=== PATIENT | female | born 1970 | race Caucasian/White ===

== ENCOUNTER → 2020-05-31 07:46 | Outpatient (CLI) | payer OTHER, SELFPAY ==
--- NOTE | ~2020-05-31 | MMUS_ITS ---
EXAMINATION: MM diagnostic tatyana BI w marcio, US breast RT complete HISTORY: Right axillary tail lump TECHNIQUE: Bilateral full field and right spot ML, MLO and craniocaudal 3-D tomosynthesis images were performed and synthetic 2-D images were generated. CAD analysis was submitted and interpreted. High resolution complete right breast and right axillary ultrasound was performed. COMPARISON: 07/26/2010, 07/17/2009, bilateral digital screening mammogram BREAST PARENCHYMAL COMPOSITION: There are scattered areas of fibroglandular density. FINDINGS: MAMMOGRAPHIC FINDINGS: Circumscribed right axillary stable benign-appearing lymph nodes are noted, also present on 07/26/2010 and 07/17/2009 and 02/27/2006. No suspicious mass, architectural distortion, malignant calcification, skin thickening or retraction or significant new or developing density since prior examinations dating back to 02/27/2006. ULTRASOUND: Unremarkable circumscribed benign-appearing lymph nodes are noted in the right axillary area, includi ng an approximately 8 x 1.6 cm lymph node at the area of clinical complaint of palpable abnormality. No suspicious right breast mass or shadowing is evident. IMPRESSION: 1. No mammographic evidence of malignancy 2. Routine annual mammographic screening is recommended. 3. If there is any clinically suspicious palpable finding, consider biopsy. BI-RADS Category 2: Benign finding(s). Reviewed, dictated and finalized at location A. ENT CLERICAL ASSISTANT IMPRESSION: 1. No mammographic evidence of malignancy 2. Routine annual mammographic screening is recommended. 3. If there is any clinically suspicious palpable finding, consider biopsy. BI-RADS Category 2: Benign finding(s).
== END ==
PROVIDERS: PCP Internal Medicine; Visit Provider Nurse Practitioner Obstetrics & Gynecology
DX: N63.31 Unspecified lump in axillary tail of the right breast (principal)
CPT/HCPCS: 76641; 77062; 77066; G0279

== ENCOUNTER 2022-07-01 11:18 | Emergency (ER) | payer OTHER, SELFPAY ==
[2022-07-01 12:01] VITALS: BP 149/100; PULSE 97; RESP 16; TEMP 36.7; O2SAT 98
--- NOTE | 2022-07-01 12:24 | ED.ABDPAIN ---
HPI - Abdominal Pain General Chief Complaint: Abdominal Pain Stated Complaint: pain on lt side Time Seen by Provider: 07/01/22 12:24 Source: patient and RN notes reviewed Mode of arrival: ambulatory Limitations: no limitations History of Present Illness HPI narrative: 51-year-old female presented for complaint of abdominal pain, onset yesterday morning. She endorses the night before she felt extremely nauseous. She reports the pain is to the left of her belly button and radiates to the right lower abdomen. She denies any pain at rest. Endorses pain is 7/10 with any movement. She currently denies nausea vomiting, diarrhea, constipation, urinary complaints, fevers or chills. She has history of cholecystectomy and hysterectomy. Related Data Home Medications Medication Instructions Recorded Confirmed atorvastatin 10 mg tablet 10 mg PO DAILY 07/01/22 07/01/22 bupropion HCl 150 mg 24 hr tablet, 150 mg PO DAILY 07/01/22 07/01/22 extended release Allergies Allergy/AdvReac Type Severity Reaction Status Date / Time No Known Allergies Allergy Unverified 07/01/22 12:04 Review of Systems Review of Systems: CONSTITUTIONAL: Denies body aches, fever, chills ENT: Denies rhinorrhea, congestion CARDIOVASCULAR: Denies chest pain, palpitations, or edema. RESPIRATORY: Denies cough or dyspnea. GASTROINTESTINAL: Endorses abdominal pain, Denies nausea, vomiting, diarrhea, hematochezia/melena GENITOURINARY: Denies dysuria, hematuria, or CVA tenderness. SKIN: Denies rash, itching, or wounds. MUSCULOSKELETAL: Denies back pain, joint pain, or myalgia. NEUROLOGIC: Denies headache, numbness, tingling, or weakness. All systems reviewed & are unremarkable except as noted in HPI and below [facility] Comments At time of signature, I have reviewed and agree with nursing past medical, surgical, social and family history unless otherwise noted. Please see nursing chart for further information. There is no relevant family history pertinent to the presenting complaint Exam Narrative: GENERAL: Well-appearing, and in no acute distress. appears in pain with movement EYES: EOMI. Conjunctivae normal. ENT: Mucous membranes pink and moist. CHEST: No respiratory distress. Clear to auscultation. HEART: Regular rate and rhythm. No murmur appreciated. Normal peripheral pulses. ABDOMEN: abd soft, nondistended, normal active bowel sounds. Tender abdomen left of umbilicus and RLQ with palpation; guarding noted, without rebound tenderness, asymmetry EXTREMITIES: Normal range of motion. No edema. SKIN: Warm, dry, no rash. Capillary refill normal. Normal skin turgor. NEURO: No focal deficits. Alert and oriented x3. PSYCH: Normal affect. Course Course Emergency Course: Patient is aware of diagnosis, understands and agrees to treatment plan. Anticipatory guidance given. Patient agrees to follow-up as directed and is aware of reasons to seek care at the emergency department. Portions of this record may have been created with voice recognition software Level of Care: Express Care Visit Vital Signs Vital signs: Vital Signs Temperature 98.1 F 07/01/22 12:01 Pulse Rate 97 07/01/22 12:01 Respiratory Rate 16 07/01/22 12:01 Blood Pressure 149/100 H 07/01/22 12:01 Pulse Oximetry 98 07/01/22 12:01 Oxygen Delivery Room Air 07/01/22 12:01 Temperature 98.1 F 07/01/22 12:01 Pulse Rate 97 07/01/22 12:01 Respiratory Rate 16 07/01/22 12:01 Blood Pressure 149/100 H 07/01/22 12:01 Pulse Oximetry 98 07/01/22 12:01 Oxygen Delivery Room Air 07/01/22 12:01 Transfer Transfered to: [place] Transportation: Other (private vehicle) Transfer rationale: Pt is agreeable to transfer. Requests transfer to [facility] via private vehicle. Risks of transportation reviewed with pt including injury, worsening of condition and . v/u. will be driving pt; Report called to hospital, spoke with Dr Chavis, accepting p
== END 2022-07-01 12:37 | disposition short-term general hospital (02) ==
PROVIDERS: Emergency Provider Nurse Practitioner Family; PCP Internal Medicine
DX: R10.31 Right lower quadrant pain (principal); E78.00 Pure hypercholesterolemia, unspecified; F41.9 Anxiety disorder, unspecified
CPT/HCPCS: 99202; G0463

== ENCOUNTER 2022-07-01 12:56 | Emergency (ER) | payer OTHER, SELFPAY ==
--- NOTE | ~2022-07-01 | CT_ITS ---
EXAMINATION: CT abdomen pelvis w con DATE: 07/01/2022 17:43 INDICATION: periumbilical/RLQ pain, nausea TECHNIQUE: Computed tomography (CT) of the abdomen and pelvis was performed with 100 mL Omnipaque-350 intravenous contrast. Automated exposure control and iterative reconstruction technique were employe d. The dose-length product was 1051.32 mGy-cm. COMPARISON: 01/11/2011. FINDINGS: Lower thorax: Small hiatal hernia Liver: Normal. Biliary/Gallbladder: Gallbladder is absent. No bile duct dilation. Pancreas: No mass or duct dilation. Spleen: Normal. Adrenals:No mass. Kidneys: No mass, stone, or hydronephrosis. GI tract: No small or large bowel dilation. Normal appendix. Mild distal sigmoid and rectal wall thic kening. Pronounced diverticulosis without diverticulitis. Mesentery/Peritoneum: No ascites, mass, or free air. Retroperitoneum: No mass. Pelvis: Pelvic organs are within normal limits. Soft Tissues: Small uncomplicated fat-containing umbilical hernia Bones: No acute osseous finding. IMPRESSION: Mild distal sigmoid and rectal wall thickening, which may reflect a component of colitis/proctitis in the appropriate clinical context. Otherwise, no acute abdominopelvic process detected Reviewed, dictated and finalized at location K. TABLE HARVEST MACHINE OPERATOR IMPRESSION: Mild distal sigmoid and rectal wall thickening, which may reflect a component o f colitis/proctitis in the appropriate clinical context. Otherwise, no acute ab dominopelvic process detected
[2022-07-01 13:02] VITALS: BP 150/99; PULSE 84; RESP 16; TEMP 36.8; O2SAT 99
[2022-07-01 13:56] LABS: Add Urine Microscopic? YES; Appearance Urine Clear (Clear); Basophils Percent Auto 0.3 % (0.2-1.2); Bilirubin Urine Negative (Negative); Blood Urine Negative (Negative); Color Urine Yellow (Yellow); Eosinophils Absolute Auto 0.1 K/mm3 (0-0.3); Eosinophils Percent Auto 1.4 % (0-4.4); Glucose Urine UA Negative (Negative); Hematocrit 42.1 % (37.0-47.0); Hemoglobin 14.4 g/dL (12.0-15.0); Immature Granulocyte Absolute 0.03 K/mm3 (0.00-0.031); Immature Granulocyte Percent A 0.3 % (0-0.5); Ketones Urine Negative (Negative); Leukocyte Esterase Ur Trace LEU/UL (Negative); Lymphocytes Absolute Auto 3.28 K/mm3 (0.9-3.2); Lymphocytes Percent Auto 38.1 % (18.3-44.2); Mean Corpuscular HGB Conc 34.2 g/dl (32-36); Mean Corpuscular Hemoglobin 31.3 pg (26-34); Mean Corpuscular Volume 91.5 fl (80-100); Mean Platelet Volume 8.8 fl (7.4-10.4); Monocytes Absolute Auto 0.6 K/mm3 (0.1-0.6); Monocytes Percent Auto 6.5 % (2.6-8.5); Neutrophils Absolute Auto 4.6 K/mm3 (1.3-6.7); Neutrophils Percent Auto 53.4 % (45.5-73.1); Nitrate Urine Negative (Negative); Platelet Count Result 277 k/mm3 (150-375); Protein Urine Negative (Negative); Red Cell Distribution Width 13.4 % (11.5-14.5); Urobilinogen Urine 0.2 mg/dL (<2.0); White Blood Count 8.6 K/mm3 (4.5-10.0); pH Urine 6.5 (5.0-9.0)
[2022-07-01 14:03] LABS: Bacteria Urine Trace /hpf; RBC Urine 0-2 /hpf (0-2); Squamous Epithelial Cell Urine Many /hpf (Few); WBC Urine 0-3 /hpf
[2022-07-01 14:05] LABS: Alanine Aminotransferase 21 U/L (6-35); Albumin Level 4.7 g/dL (3.5-5.1); Alkaline Phosphatase 71 U/L (38-126); Anion Gap 7 mmol/L (8-16); Aspartate Amino Transferase 25 U/L (14-36); Bilirubin,Total 0.4 mg/dL (0.2-1.3); Blood Urea Nitrogen 10 mg/dL (7-17); Carbon Dioxide 29 mmol/L (22-30); Chloride 103 mmol/L (98-107); Estimated CRCL calculation 67 ml/min; Estimated Glomerular Filt Rate 58; Glucose 90 mg/dL (65-110); Lipase 56 U/L (23-300); Potassium 4.4 mmol/L (3.4-5.0); Sodium 139 mmol/L (137-145)
[2022-07-01 16:55] VITALS: BP 130/86; PULSE 83; RESP 18; O2SAT 97
[2022-07-01] MEDS: SODIUM CHLORIDE 0.9% IV 1,000 ML 999 ML IV CONT (17:09)
--- NOTE | 2022-07-01 17:21 | ED.ABDPAIN ---
HPI - Abdominal Pain General Chief Complaint: Abdominal Pain Stated Complaint: abd pain Time Seen by Provider: 07/01/22 16:56 Source: patient Mode of arrival: ambulatory Limitations: no limitations History of Present Illness HPI narrative: Patient is a 51-year-old female who presents the ED with report of periumbilical abdominal pain. Patient reports she developed nausea and a general unwell feeling 2 nights ago. She developed pain in her periumbilical region yesterday, which has persisted since then. Worse with any type of movement. No pain with resting. She has been taking ibuprofen with minimal relief. She went to an urgent care today where she was referred to the ED for further evaluation and to rule out appendicitis. Patient denies any further nausea, vomiting, diarrhea, constipation, fever, urinary symptoms, history of similar pain. Related Data Allergies Allergy/AdvReac Type Severity Reaction Status Date / Time No Known Allergies Allergy Verified 07/01/22 16:56 Review of Systems Review of Systems: CONSTITUTIONAL: Denies fever, chills, or sweats. CARDIOVASCULAR: Denies chest pain. RESPIRATORY: Denies dyspnea. GASTROINTESTINAL: See HPI. GENITOURINARY: Denies dysuria or hematuria. SKIN: Denies rash or itching. MUSCULOSKELETAL: Denies back pain, joint pain, or myalgia. All systems reviewed & are unremarkable except as noted in HPI and below PMFSH Past Medical History Medical History (Updated 07/01/22 @ 19:57 by Courtney Mcqueen PA-C) Anxiety Depression Hyperlipidemia Surgical History Surgical History (Updated 07/01/22 @ 17:23 by Courtney Mcqueen PA-C) History of cholecystectomy History of hysterectomy Hx of partial thyroidectomy Social History Social History (Updated 07/01/22 @ 17:23 by Courtney Mcqueen PA-C) Smoking status: Never smoker Exam Narrative: GENERAL: Well appearing, obese, non-toxic, in no acute distress. HEAD: Normocephalic, atraumatic. NECK: Supple. No adenopathy, no masses. RESPIRATORY: Airway patent, respirations nonlabored. Clear to auscultation bilaterally, no rales, rhonchi, wheezing. CARDIOVASCULAR: Regular rate and rhythm without murmurs, rubs, or gallops. Peripheral pulses 2+ and equal bilaterally. ABDOMINAL: Soft, mild tenderness to palpation in right periumbilical region, extending into right mid abdomen, nondistended, no hepatosplenomegaly. Normoactive BS. MUSCULOSKELETAL: Moves all extremities. Strength/ROM intact without gross deformities. SKIN: Warm, dry, normal color. No rashes. NEURO: A&O X3. Speech clear. Cranial nerves II-XII grossly intact. Steady gait. No ataxic movements. PSYCHIATRIC: Appropriate mood and affect. Normal interaction. Course Vital Signs Vital signs: Vital Signs Temperature 98.3 F 07/01/22 13:02 Pulse Rate 84 07/01/22 13:02 Respiratory Rate 16 07/01/22 13:02 Blood Pressure 150/99 H 07/01/22 13:02 Pulse Oximetry 99 07/01/22 13:02 Oxygen Delivery Room Air 07/01/22 13:02 Temperature 98.3 F 07/01/22 13:02 Pulse Rate 82 07/01/22 18:51 Respiratory Rate 18 07/01/22 18:51 Blood Pressure 131/95 H 07/01/22 18:51 Pulse Oximetry 98 07/01/22 18:51 Oxygen Delivery Room Air 07/01/22 13:02 MDM - Abdominal Pain MDM Narrative Medical decision making narrative: Patient presented to ED with 2-day history of periumbilical abdominal pain. Vitals stable upon arrival. Patient with tenderness extending into R mid abdomen on exam. Labs unremarkable. UA without signs of infection. CT scan of abdomen/pelvis obtained showing possible signs of colitis/proctitis, otherwise no acute intra-abdominal findings. Low suspicion for colitis as patient has not had any bowel changes, no leukocytosis, no fevers. CT noted normal appendix, normal pelvic structures. Does show small umbilical hernia, though not palpable on exam. Less likely that this is cause of pain. No signs of bowel involvement of hernia. Discussed lab
[2022-07-01] MEDS: KETOROLAC 30 MG/ML VIAL (*BKC) IV PUSH (18:45)
[2022-07-01 18:51] VITALS: BP 131/95; PULSE 82; RESP 18; O2SAT 98
== END 2022-07-01 20:48 | disposition home or self-care (01) ==
PROVIDERS: Emergency Medicine; Emergency Provider Physician Assistant; PCP Internal Medicine
DX: R10.33 Periumbilical pain (principal)
CPT/HCPCS: 36415; 74177; 80053; 81001; 81025; 83690; 85025; 96365; 96366; 96375; 99284; J0131; J1885; J7030; Q9967

== ENCOUNTER 2023-05-28 12:24 | Emergency (ER) | payer OTHER, SELFPAY ==
[2023-05-28] VITALS (15 sets, daily range): BP systolic 117–153; BP diastolic 82–99; PULSE 84–98; RESP 12–18; TEMP 36.6; O2SAT 95–100
--- NOTE | ~2023-05-28 | XR_ITS ---
EXAMINATION: XR chest 2V DATE: 05/28/2023 14:25 INDICATION: Midsternal chest pressure. TECHNIQUE: Frontal and lateral views of the chest were obtained. COMPARISON: Chest 2 views 02/17/2017, CT abdomen and pelvis 07/01/2022 FINDINGS: There is no pneumonia, pleural effusion, or pneumothorax. The heart size is normal. Surgica l clips in the right upper quadrant are likely from cholecystectomy. IMPRESSION: 1. No acute cardiopulmonary disease. Reviewed, dictated and finalized at location A. SILVERMAN
--- NOTE | 2023-05-28 12:25 | ECG_ITS ---
Measurements Intervals [place] Rate: 101 P: -1 SC: 144 QRS: 6 QRSD: 103 T: 19 QT: 354 QTc: 460 Interpretive Statements SINUS TACHYCARDIA DELAYED PRECORDIAL R/S TRANSITION BORDERLINE T WAVE ABNORMALITY- INFERIOR LEADS BORDERLINE ECG NO PREVIOUS ECG AVAILABLE FOR COMPARISON Electronically Signed On 05-28-2023 12:47:35 [employer] by Rocael Sousa D.O.
[2023-05-28 12:40] LABS: Basophils Percent Auto 0.3 % (0.2-1.2); Eosinophils Absolute Auto 0.2 K/mm3 (0-0.3); Eosinophils Percent Auto 2.2 % (0-4.4); Hematocrit 42.1 % (37.0-47.0); Hemoglobin 14.3 g/dL (12.0-15.0); Immature Granulocyte Absolute 0.03 K/mm3 (0.00-0.031); Immature Granulocyte Percent A 0.3 % (0-0.5); Lymphocytes Absolute Auto 3.16 K/mm3 (0.9-3.2); Lymphocytes Percent Auto 35.1 % (18.3-44.2); Mean Corpuscular Hemoglobin 31.3 pg (26-34); Mean Corpuscular Volume 92.1 fl (80-100); Mean Platelet Volume 8.6 fl (7.4-10.4); Monocytes Absolute Auto 0.7 K/mm3 (0.1-0.6); Monocytes Percent Auto 7.7 % (2.6-8.5); Neutrophils Absolute Auto 4.9 K/mm3 (1.3-6.7); Neutrophils Percent Auto 54.4 % (45.5-73.1); Platelet Count Result 296 k/mm3 (150-375); Red Blood Count 4.57 M/mm3 (4.2-5.4); Red Cell Distribution Width 13.3 % (11.5-14.5)
[2023-05-28 12:55] LABS: Alanine Aminotransferase 29 U/L (6-35); Albumin Level 4.7 g/dL (3.5-5.1); Alkaline Phosphatase 82 U/L (38-126); Anion Gap 12 mmol/L (8-16); Aspartate Amino Transferase 31 U/L (14-36); Bilirubin,Total 0.7 mg/dL (0.2-1.3); Blood Urea Nitrogen 12 mg/dL (7-17); Calcium 9.4 mg/dL (8.4-10.2); Carbon Dioxide 24 mmol/L (22-30); Chloride 100 mmol/L (98-107); Estimated Glomerular Filt Rate > 60; Glucose 91 mg/dL (65-110); Lipase 75 U/L (23-300); Potassium 3.8 mmol/L (3.4-5.0); Sodium 136 mmol/L (137-145)
[2023-05-28 12:57] LABS: INR 0.9; Partial Thromboplastin Time 25.3 SECONDS (22.3-36.8); Prothrombin Time 12.2 Seconds (11.1-14.7)
[2023-05-28 13:05] LABS: Troponin I < 0.012 ng/mL (0.000-0.034)
--- NOTE | 2023-05-28 14:41 | PC.NURSE ---
Patient denies chest pain at this time, but states she continues to feel dizzy. patient has been dealing with dizziness since June, but has not been given a diagnosis.
--- NOTE | 2023-05-28 15:31 | ED.CHESTPAIN ---
HPI - Chest Pain General Chief Complaint: Chest Pain Stated Complaint: dizziness, cp Time Seen by Provider: 05/28/23 14:28 History of Present Illness HPI narrative: 52-year-old female presenting to the emergency department after having some episodes of dizziness. Patient states she has been having multiple issues with dizziness and lightheadedness is currently being worked up by her primary care physician. Patient recently had an echo and a nuclear stress test. Patient is currently wearing a event monitor. Patient denies any current chest pain or shortness of breath. Patient denies any nausea vomiting or diarrhea. During examination patient is resting comfortably. Related Data Home Medications Medication Instructions Recorded Confirmed atorvastatin 10 mg tablet 10 mg PO DAILY 07/01/22 07/01/22 bupropion HCl 150 mg 24 hr tablet, 150 mg PO DAILY 07/01/22 07/01/22 extended release Allergies Allergy/AdvReac Type Severity Reaction Status Date / Time No Known Allergies Allergy Verified 05/28/23 12:25 Review of Systems Review of Systems: All systems reviewed & are unremarkable except as noted in HPI and below PMFSH Past Medical History Medical History (Updated 05/29/23 @ 00:00 by Maggie Scherer) Anxiety Depression Hyperlipidemia Surgical History Surgical History (Updated 08/28/22 @ 11:17 by Vero Geller) History of cholecystectomy History of hysterectomy Hx of partial thyroidectomy Social History Social History (System 08/28/22 @ 11:17 by Vero Geller) Smoking status: Never smoker Exam Narrative: APPEARANCE: Well appearing, no pain, no distress, well-nourished. HEAD: normocephalic, atraumatic. EYES: PERRLA/EOMI, conjunctivae clear. NOSE: Normal no drainage EARS:TMS clear with good light reflex. THROAT: Pharynx clear, no exudate. NECK: Supple. No adenopathy, no masses. RESPIRATORY: Airway patent, respirations nonlabored. Clear to auscultation bilaterally, no rales, rhonchi, wheezing. CARDIOVASCULAR: Regular rate and rhythm without murmurs rubs or gallops. ABDOMINAL: Soft, nontender, nondistended, normal bowel sounds MUSCULOSKELETAL: Moves all extremities. Strength/ROM intact, No edema, No calf tenderness. NEURO: Alert. Cranial nerves II through XII intact. grossly intact SKIN: Warm, dry. Normal Color Course Course Emergency Course: 52-year-old female presenting to the emergency department for evaluation of intermittent dizziness. Patient is asymptomatic. Patient has normal sinus rhythm. Patient is afebrile with no leukocytosis and a stable hemoglobin. No significant electrolyte abnormalities. Patient had negative serial troponins. Patient also had a negative D-dimer. Patient family of the results of the workup. Patient was comfortable with plan for discharge and close follow-up with her Primary care physician. Vital Signs Vital signs: Vital Signs Temperature 97.9 F 05/28/23 12:38 Pulse Rate 98 05/28/23 12:38 Respiratory Rate 16 05/28/23 12:38 Blood Pressure 153/99 H 05/28/23 12:38 Pulse Oximetry 97 05/28/23 12:38 Temperature 97.9 F 05/28/23 12:38 Pulse Rate 85 05/28/23 17:07 Respiratory Rate 13 05/28/23 17:07 Blood Pressure 124/84 05/28/23 17:00 Pulse Oximetry 97 05/28/23 17:07 MDM - Chest Pain Differential Diagnosis Differential diagnosis: Likely pneumothorax, atypical chest pain and chest pain Lab Data Attestation: I reviewed the patient's lab results. 05/28/23 12:34 05/28/23 12:34 Labs: Lab Results 05/28/23 05/28/23 05/28/23 Range/Units 12:34 15:30 16:18 WBC 9.0 (4.5-10.0) K/mm3 RBC 4.57 (4.2-5.4) M/mm3 Hgb 14.3 (12.0-15.0) g/dL Hct 42.1 (37.0-47.0) % MCV 92.1 (80-100) fl MCH 31.3 (26-34) pg MCHC 34.0 (32-36) g/dl RDW 13.3 (11.5-14.5) % Plt Count 296 (150-375) k/mm3 MPV 8.6 (7.4-10.4) fl Immature Gran % (Auto) 0.3 (0
[2023-05-28 16:02] LABS: Troponin I < 0.012 ng/mL (0.000-0.034)
[2023-05-28 16:36] LABS: Magnesium 2.1 mg/dL (1.6-2.3)
[2023-05-28 17:04] LABS: D Dimer < 0.27 ug/mL (<0.48)
== END 2023-05-28 17:14 | disposition home or self-care (01) ==
PROVIDERS: Student in an Organized Health Care Education/Training Program; Emergency Provider Emergency Medicine; PCP Internal Medicine
DX: R42 Dizziness and giddiness (principal); E78.5 Hyperlipidemia, unspecified; F41.9 Anxiety disorder, unspecified; F32.A Depression, unspecified; E89.0 Postprocedural hypothyroidism; Z90.49 Acquired absence of other specified parts of digestive tract; Z90.710 Acquired absence of both cervix and uterus; R00.0 Tachycardia, unspecified; R94.31 Abnormal electrocardiogram [ECG] [EKG]
CPT/HCPCS: 36415; 71046; 80053; 83690; 83735; 84443; 84484; 85025; 85380; 85610; 85730; 93005; 99284